=== PATIENT | female | born 1965 | race Caucasian/White ===

== ENCOUNTER → 2022-01-16 | Outpatient (CLI) | payer BC ==
--- NOTE | 2022-01-16 11:59 | MM ---
Reason for exam: additional evaluation requested from abnormal screening. Last mammogram was performed less than 1 month ago. History: Patient is postmenopausal. Physical Findings: Nurse did not find any significant physical abnormalities on exam. MG Work Up Mamm w CAD LT CC and MLO view(s) were taken of the left breast. Prior study comparison: January 07, 2022, bilateral MG screening mammo w CAD. September 22, 2017, bilateral MG diagnostic mammo w CAD [facility]. There are scattered fibroglandular densities. Posterior superior asymmetric density partially disperses on spot MLO, with an appearance similar to priors. As it persists on lateral, precautionary 6 month follow up recommended. No significant new findings when compared with previous films. These results were verbally communicated with the patient and result sheet given to the patient on 01/16/22. ASSESSMENT: Probably benign, BI-RAD 3 RECOMMENDATION: Follow-up diagnostic mammogram of the left breast in 6 months.
== END | disposition home or self-care (01) ==
LOC: RADMAMWWP 10:14
PROVIDERS: ATTEND Obstetrics & Gynecology
DX: R92.8 Other abnormal and inconclusive findings on diagnostic imaging of breast (principal); Z78.0 Asymptomatic menopausal state
CPT/HCPCS: 77065

== ENCOUNTER → 2022-10-22 | Outpatient (CLI) | payer BC ==
--- NOTE | 2022-10-22 13:28 | MM ---
Reason for Exam: Follow-up at short interval from prior study. Last screening mammogram was performed 9 month(s) ago. Patient History: Menarche at age 11. First Full-Term at age 22. Postmenopausal. Patient has history of breast feeding. Risk Values: Mayte 5 year model risk: 1.2%. NCI Lifetime model risk: 6.9%. Prior Study Comparison: 05/28/2006 Bilateral Screening Mammogram, [facility]. 02/01/2008 Bilateral Screening Mammogram, [facility]. 11/07/2013 Bilateral Screening Mammogram, [facility] 09/22/2017 Bilateral Diagnostic Mammogram, [facility]. 01/07/2022 Bilateral Screening Mammogram, [facility]. 01/16/2022 Left Diagnostic Mammogram, [facility]. Tissue Density: Left: There are scattered fibroglandular densities. Findings: Analyzed By CAD. No distinct mass. No distortion seen. No suspicious calcifications. Overall Assessment: Benign, BI-RAD 2 Management: Screening Mammogram of both breasts in 3 months. A clinical breast exam by your physician is recommended on an annual basis and results should be correlated with mammographic findings. This exam should not preclude additional follow-up of suspicious palpable abnormalities. Results were given to the patient verbally at the time of exam. Electronically signed and approved by: Marcelo Linton M.D. Radiologis
== END | disposition home or self-care (01) ==
LOC: RADMAMWWP 13:00
PROVIDERS: ATTEND Obstetrics & Gynecology
DX: R92.8 Other abnormal and inconclusive findings on diagnostic imaging of breast (principal); Z78.0 Asymptomatic menopausal state
CPT/HCPCS: 77065

== ENCOUNTER → 2025-04-11 | Outpatient (CLI) | payer BC ==
--- NOTE | 2025-04-11 10:44 | MM ---
Reason for Exam: Screening (asymptomatic). Last mammogram was performed 3 year(s) and 3 month(s) ago. Patient History: Menarche at age 11. First Full-Term at age 22. Postmenopausal. Patient has history of breast feeding. Risk Values: Mayte 5 year model risk: 1.3%. NCI Lifetime model risk: 6.6%. Prior Study Comparison: 01/07/2022 Bilateral Screening Mammogram, [facility]. 01/16/2022 Left Diagnostic Mammogram, [facility]. 10/22/2022 Left MG diagnostic mammo LT w CAD, [facility]. Tissue Density: The breasts are almost entirely fatty. Findings: Analyzed By CAD. Right breast: There is no suspicious group of microcalcifications or new suspicious mass. Left breast: There is no suspicious group of microcalcifications or new suspicious mass. Overall Assessment: Negative, BI-RAD 1 Management: Screening Mammogram of both breasts in [address] [facility] will attempt to contact patient to return for supplemental views and ultrasound if indicated. Patient should continue monthly self-breast exams. A clinical breast exam by your physician is recommended on an annual basis. This exam should not preclude additional follow-up of suspicious palpable abnormalities. Note on Mayte scores and lifetime risk: 1. A Mayte score greater than 3% is considered moderate risk. If this is the case, consider specialist referral to assess eligibility for a risk reducing agent. 2. If overall lifetime risk for the development of breast cancer is 20% or higher, the patient may qualify for future screening with alternating mammogram and breast MRI. [facility], , 04/11/2025 10:41 AM. Electronically signed and approved by: Tor Jones DO
== END | disposition home or self-care (01) ==
LOC: RADMAMWWP 09:52
PROVIDERS: ATTEND Family Medicine
DX: Z12.31 Encounter for screening mammogram for malignant neoplasm of breast (principal); R92.313 Mammographic fatty tissue density, bilateral breasts; Z78.0 Asymptomatic menopausal state
CPT/HCPCS: 77067